=== PATIENT | female | born 1960 | race Caucasian/White ===

== ENCOUNTER 2017-06-05 14:06 | Outpatient (CLI) | payer BC, OTHER ==
--- NOTE | 2017-06-05 15:56 | XRay Report ---
Right elbow 3 views: History: Elbow pain. Findings: No bony or articular abnormality. No fracture dislocation or soft tissue calcification. No joint effusion. Impression: Essentially negative right elbow .
== END 2017-06-05 14:07 | disposition home or self-care (01) ==
LOC: XRAY 14:06
PROVIDERS: ATTEND Orthopaedic Surgery Sports Medicine
DX: M25.521 Pain in right elbow (principal)